=== PATIENT | female | born 1980 | race Caucasian/White ===

== ENCOUNTER 2021-08-08 07:43 | Emergency (ER) | payer SELFPAY ==
[~2021-08-08] VITALS: Ht 160 cm; Wt 61.2 kg
[2021-08-08 07:43] VITALS: BP_SYST 136
--- NOTE | 2021-08-08 07:43 | NUR ---
Patient triaged and placed in waiting room. VSS and patient appears in no acute distress at this time. Accompanied by self, awaiting available bed, and MD notified of need for MSE.
--- NOTE | 2021-08-08 08:55 | NUR ---
BROUGHT BACK TO BED #2 AND TRIAGED. REPORT GIVEN TO FLORENCIO
--- NOTE | 2021-08-08 09:04 | NUR ---
Pt presents to the ED alone ambulates with steady gait. C/O acute lower back pain level 9/10. 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 Pt grimaces and has no relief from positional changes. Pt states no relief from tens unit ordered by workers comp therapy. Pt skin intact, VSS denies N/V. PMH Herniated Disc
--- NOTE | 2021-08-08 09:30 | NUR ---
FREDIS Abbasi at bedside examining patient.
[2021-08-08] MEDS ORDERED: MORPHINE 4 MG INJ. 4 MG/ML VIAL IM ONE ×2 (09:45→11:30)
[2021-08-08] MEDS ORDERED: DIAZEPAM 5 MG TABLET (VALIUM) PO ONE (09:45)
[2021-08-08 12:23] VITALS: BP_SYST 155
--- NOTE | 2021-08-08 12:25 | NUR ---
Patient given written and verbal discharge instructions and verbalizes understanding. ER MD discussed with patient the results and treatment provided. Patient in stable condition. ID arm band removed. Patient educated on pain management and to follow up with PMD. Pain Scale 0/10. Opportunity for questions provided and answered. Medication side effect fact sheet provided.
== END 2021-08-08 12:25 | disposition home or self-care (01) ==
LOC: SED 07:43
DX: G89.29 Other chronic pain (principal); M54.50 Low back pain, unspecified; Z87.39 Personal history of other diseases of the musculoskeletal system and connective tissue
CPT/HCPCS: 96372; 99284; J2270